=== PATIENT | male | born 1995 | race Caucasian/White ===

== ENCOUNTER 2023-04-22 14:26 | Outpatient (CLI) | payer OTHER, SELFPAY | END 2023-04-22 14:27 | disposition home or self-care (01) | LOC: KYNREF 14:28 | PROVIDERS: PCP Nurse Practitioner Family; Visit Provider Nurse Practitioner Family | DX: R22.1 Localized swelling, mass and lump, neck (principal) | CPT/HCPCS: 85025 ==

== ENCOUNTER 2023-04-23 07:06 | Outpatient (CLI) | payer OTHER, SELFPAY ==
--- NOTE | 2023-04-23 07:15 | CRLHL7_ITS ---
For Patients: As a result of the Century Cures Act, medical imaging exams and procedure reports are released immediately into your electronic medical record. You may view this report before your referring provider. If you have questions, please contact your health care provider. INDICATION: Palpable lump right neck. TECHNIQUE: Directed ultrasound of the right neck. FINDINGS: No discrete mass or measurable lymphadenopathy. No fluid collection. There is soft tissue prominence which may reflect soft tissue swelling/edematous soft tissue. This region measures approximately 2.6 x 0.7 x 1.9 cm. IMPRESSION: 1. Edematous appearing or prominent soft tissue right neck. 2. No discrete mass or lymphadenopathy. 3. No drainable fluid collection. Dictated by Maurice Causey MD @ 04/23/2023 10:12:19 PM (Electronically Signed)
== END 2023-04-23 07:07 | disposition home or self-care (01) ==
PROVIDERS: PCP Nurse Practitioner Family; Visit Provider Nurse Practitioner Family
DX: R22.1 Localized swelling, mass and lump, neck (principal)
CPT/HCPCS: 76536